=== PATIENT | female | born 2000 | race Caucasian/White ===

== ENCOUNTER 2024-10-23 13:52 | Outpatient (CLI) | payer OTHER, SELFPAY ==
--- NOTE | ~2024-10-23 | XR_ITS ---
EXAM: XR knee LT 3V DATE: 10/23/2024 14:22 HISTORY: Acute pain of L knee . COMPARISON: None available. FINDINGS: Normal mineralization. No fracture or dislocation. No lytic or blastic lesion. Mild medial joint space narrowing. No erosion or periosteal change. Trace joint fluid. 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 Reviewed, dictated and finalized at location K. [facility]
== END 2024-10-23 13:53 | disposition home or self-care (01) ==
DX: M17.12 Unilateral primary osteoarthritis, left knee (principal)
CPT/HCPCS: 73562